=== PATIENT | male | born 1995 | race Caucasian/White ===

== ENCOUNTER 2024-10-03 09:37 | Emergency (ER) | payer BC ==
[~2024-10-03] VITALS: Ht 182.9 cm; Wt 77.1 kg
[2024-10-03 09:48] VITALS: O2SAT 99
[2024-10-03 10:25] LABS: BASOPHILS % 0.3 % (0.0-2.0); EOSINOPHILS % 3.7 % (0.0-5.0); HEMATOCRIT. 49.3 % (42.0-52.0); HEMOGLOBIN. 16.2 g/dL (14.0-18.0); LYMPHOCYTES % 33.2 % (20.0-50.0); MEAN CORPUSCULAR HEMOGLOBIN 27.5 pg (28.0-32.0); MEAN CORPUSCULAR HGB CONC 32.8 g/dL (31.0-37.0); MEAN CORPUSCULAR VOLUME 83.9 fL (80.0-94.0); MEAN PLATELET VOLUME 7.3 fl (7.4-10.4); MONOCYTES % 12.3 % (2.0-8.0); NEUTROPHILS % 50.5 % (40.0-76.0); PLATELET 190 x1000/uL (130-400); RED BLOOD CELL COUNT 5.88 mill/uL (4.7-6.1); RED CELL DISTRIBUTION WIDTH 12.8 % (11.6-14.6); WHITE BLOOD COUNT 6.3 x1000/uL (4.5-11.0)
[2024-10-03 10:43] LABS: DIFFERENTIAL COMMENT 1
[2024-10-03 10:54] LABS: CHLORIDE 107 mEq/L (98-107); POTASSIUM 3.8 mEq/L (3.5-5.1); SODIUM 141 mEq/L (136-145)
[2024-10-03 10:55] LABS: CALCIUM 9.3 mg/dL (8.7-10.4); CARBON DIOXIDE 26 mEq/L (21-32)
[2024-10-03 11:00] LABS: CREATININE 0.9 mg/dL (0.6-1.3); GLUCOSE 88 mg/dL (70-105); UREA NITROGEN BLOOD 9 mg/dL (9-23)
[2024-10-03] MEDS: KETOROLAC 30MG/ML VIAL IM STA (12:12)
[2024-10-03 12:18] LABS: TROPONIN I HIGH SENSITIVITY < 4 ng/L (3.0-53)
[2024-10-03 13:03] VITALS: BP 130/86; PULSE 62; RESP 18; TEMP 37.1; O2SAT 99
== END 2024-10-03 13:04 | disposition home or self-care (01) ==
LOC: EDBD 09:37 → ER 11:00
DX: R07.89 Other chest pain (principal)
CPT/HCPCS: 99285; 71045; 80048; 85025; 84484; 36415; 93005; 96372; J1885